=== PATIENT | female | born 1985 | race Caucasian/White ===

== ENCOUNTER → 2017-08-21 14:23 | Outpatient (CLI) | payer OTHER, SELFPAY ==
[2017-08-21 14:54] LABS: Hematocrit 40.5 % (37-47); Mean Corp Hgb Conc 34.6 g/gl (32-36); Mean Corpuscular Hgb 31.7 pg (27.0-32.0); Mean Corpuscular Volume 91.6 fL (81-99); Mean Platelet Vol. 9.4 fl (6.2-12.0); Platelet Count 217 K/mm3 (150-450); RBC Distribution Width CV 12.4 % (11.6-14.6); RBC Distribution Width SD 40.9 fl (35.1-43.9); Red Blood Count 4.42 M/mm3 (4.2-5.4); White Blood Count 7.7 K/mm3 (4.4-11.0)
[2017-08-21 14:56] LABS: Scan Indicated on CBC? Y/N NO
[2017-08-21 15:22] LABS: Thyroid Stim Hormone (TSH) 0.87 uIU/mL (0.358-3.74)
== END ==
PROVIDERS: Visit Provider Obstetrics & Gynecology
DX: R53.82 Chronic fatigue, unspecified (principal)
CPT/HCPCS: 36415; 83036; 84443; 85027

== ENCOUNTER 2018-01-29 08:29 | Day surgery (SDC) | payer OTHER, SELFPAY ==
[2018-01-29 09:05] LABS: Internal QC Validated? YES +Cl - CLEAR BKGD; Pregnancy, Urine Negative Negative
[2018-01-29 09:11] VITALS: BP 116/66; PULSE 56; RESP 16; TEMP 36.9; O2SAT 100; BMI 21.2
--- NOTE | 2018-01-29 09:45 | COLBX_PTH ---
PATIENT: JORGE MERRILL LOC: EN U#:[id number] AGE/SX: 32/F ROOM: RE01/29/[address]: Dr. Lexus Lynn MD : 1985 BED: DIS: 01/29/2018 SPEC #: [id number] RECD: 01/29/18 11:45 STATUS: EMILY MARIA M #: [id number] LENA: 01/29/18 09:[address]: Lexus Lynn DEPT: SURGICAL PATHOLOGY RECD BY: Cyrus Hung ENTERED: 01/29/18 12:12 SP TYPE: COLON BX OTHR DR: Dr. Denis Kelly MD Tissues: Ascending colon Procedures: Surgery Specimen Level IV HEADER OPERATION: Colonoscopy (MAC) PRE-OP DIAGNOSIS: Bright red blood per rectum TISSUE SUBMITTED: Ascending polyp biopsy MICROSCOPIC DIAGNOSIS Ascending colon polyp, biopsy: Fragments of hyperplastic polyp. AM:ysd 01/30/18 MICROSCOPIC DESCRIPTION Slides are reviewed. GROSS DESCRIPTION Received in fixative is one container labeled with the patient's name and designated ascending polyp biopsy. The specimen consists of multiple irregular fragments of light denny soft tissue that in aggregate measure 1.8 x 0.5 x 0.1 cm. The specimen is totally submitted in one cassette. / SJ:syd 01/29/18 TC:5 CPT: 93317
[2018-01-29 10:05] VITALS: BP 116/66; BP 94/42; PULSE 66; RESP 15; TEMP 36.3; O2SAT 100
--- NOTE | 2018-01-29 10:07 | OP.ENDO_ITS ---
Patient Name: Samantha Huertas Procedure Date: 01/29/2018 9:14 AM Date of : 1985 Age: 32 Procedure: Colonoscopy Indications: Anal bleeding, Hemorrhoids Providers: Lexus Lynn MD Medicines: Monitored Anesthesia Care Patient Profile: Last Colonoscopy: none. The patient's first colonoscopy is today. Complications: No immediate complications. Procedure: Pre-Anesthesia Assessment: - Prior to the procedure, a History and Physical was performed, and patient medications and allergies were reviewed. The patient's tolerance of previous anesthesia was also reviewed. The risks and benefits of the procedure and the sedation options and risks were discussed with the patient. All questions were answered, and informed consent was obtained. Prior Anticoagulants: The patient has taken no previous anticoagulant or antiplatelet agents. ASA Grade Assessment: I - A normal, healthy patient. After reviewing the risks and benefits, the patient was deemed in satisfactory condition to undergo the procedure. After I obtained informed consent, the scope was passed under direct vision. Throughout the procedure, the patient's blood pressure, pulse, and oxygen saturations were monitored continuously. The pediatric colonoscope was introduced through the anus and advanced to the cecum, identified by the appendiceal orifice, ileocecal valve and palpation. The colonoscopy was performed without difficulty. The patient tolerated the procedure well. The quality of the bowel preparation was good. Scope In: 9:33:42 AM Scope Withdrawal Time 0 hours 14 minutes 46 seconds Scope Out: 10:01:32 AM Total Procedure Duration Time 0 hours 27 minutes 50 seconds Findings: Internal hemorrhoids were found during retroflexion and during digital exam. The hemorrhoids were Grade I (internal hemorrhoids that do not prolapse). A 4 to 7 mm polyp was found in the ascending colon. The polyp was semi-sessile. The polyp was removed with a cold biopsy forceps. Resection and retrieval were complete. The exam was otherwise without abnormality. Impression: - Internal hemorrhoids. - One 4 to 7 mm polyp in the ascending colon, removed with a cold biopsy forceps. Resected and retrieved. - The examination was otherwise normal. Recommendation: - Discharge patient to home. - High fiber diet. - Continue present medications. - Repeat colonoscopy in 3 - 5 years for surveillance based on pathology results. Procedure Code(s): --- Professional --- 05976, Colonoscopy, flexible; with biopsy, single or multiple Diagnosis Code(s): --- Professional --- K64.0, First degree hemorrhoids D12.2, Benign neoplasm of ascending colon K62.5, Hemorrhage of anus and rectum CPT copyright 2017 [employer]. All rights reserved. The codes documented in this report are preliminary and upon stage driver review may be revised to meet current compliance requirements. MD Lexus Irby MD 01/29/2018 10:07:14 AM This report has been signed electronically. Number of Addenda: 0 Note Initiated On: 01/29/2018 9:14 AM
[2018-01-29 10:10] VITALS: BP 116/66; BP 96/63; PULSE 75; RESP 16; O2SAT 100
[2018-01-29 10:15] VITALS: BP 116/66; BP 92/60; PULSE 63; RESP 16; O2SAT 100
[2018-01-29 10:20] VITALS: BP 101/59; BP 116/66; PULSE 59; RESP 16; TEMP 36.6; O2SAT 98
== END 2018-01-29 10:47 | disposition home or self-care (01) ==
LOC: EN 08:30 → AC 08:32
PROVIDERS: Anesthesiology; Family Provider Family Medicine; PCP Family Medicine; Referring Provider Surgery; Visit Provider Surgery
PROC: 0DJD8ZZ Inspection of Lower Intestinal Tract, Via Natural or Artificial Opening Endoscopic (ICD-10-PCS; CPT 45378; principal; 2018-01-29 09:40)
DX: K63.5 Polyp of colon (principal); K64.0 First degree hemorrhoids; Z87.891 Personal history of nicotine dependence
CPT/HCPCS: 45380; 81025; 88305; J7120

== ENCOUNTER → 2020-06-29 | Outpatient (CLI) | payer OTHER, SELFPAY ==
[2020-07-01 20:41] LABS: HPV Reflexed? NOT INDICATED
== END | disposition home or self-care (01) ==
LOC: LABSPEC 11:06
PROVIDERS: PCP Family Medicine; Visit Provider Obstetrics & Gynecology
DX: Z12.4 Encounter for screening for malignant neoplasm of cervix (principal)
CPT/HCPCS: 88175; G0145

== ENCOUNTER 2021-07-07 15:23 | Outpatient (CLI) | payer OTHER, SELFPAY ==
[2021-07-07 17:49] LABS: Absolute Lymphocyte Count 2.55 X10^3/uL (0.83-4.51); Absolute Neutrophil Count 3.3 X10^3/uL (2.0-7.7); Basophil# 0.05 X10^3/uL; Basophil% 0.8 % (0-1); Eosinophil# 0.07 X10^3/uL; Eosinophils% 1.1 % (0-5); Hematocrit 37.8 % (37-47); Hemoglobin 12.7 g/dL (12.0-15.0); Lymphocyte # 2.55 X10^3/ul (0.83-4.51); Lymphocyte % 38.9 % (19-41); Mean Corp Hgb Conc 33.6 g/dL (32-36); Mean Corpuscular Hgb 31.7 pg (27.0-32.0); Mean Corpuscular Volume 94.3 fL (81-99); Mean Platelet Vol. 10.2 fl (6.2-12.0); Monocyte# 0.54 X10^3/uL; Monocyte% 8.2 % (0-10); NRBC Flagged by Analyzer 0 % (0-5); Neutrophil # 3.33 X10^3/uL (2.7-7.7); Neutrophil % 50.7 % (47-70); Platelet Count 261 K/mm3 (150-450); RBC Distribution Width CV 12.9 % (11.6-14.6); RBC Distribution Width SD 44.6 fl (35.1-43.9); Red Blood Count 4.01 M/mm3 (4.2-5.4); White Blood Count 6.6 K/mm3 (4.4-11.0)
[2021-07-07 18:04] LABS: AST(SGOT) 22 U/L (15-37); Alanine Aminotransfer ALT/SGPT 25 U/L (13-56); Albumin, Serum 3.6 g/dL (3.2-5.0); Alkaline Phosphatase 63 U/L (45-117); Anion Gap 6 (5-15); BUN 18 mg/dL (7-18); BUN/Creat Ratio 30.9 RATIO (10-20); Calcium,Total 8.7 mg/dL (8.5-10.1); Chloride 103 mmol/L (98-107); Creatinine, Serum 0.58 mg/dL (0.55-1.02); EST Glomerular Filtration Rate 124 mL/min (>60); Est Glom Filt Rate - Afr Amer 150 mL/min (>60); Globulin 3.7 g/dL (2.2-4.2); Glucose 75 mg/dL (74-106); Potassium 3.8 mmol/L (3.5-5.1); Protein, Total 7.3 g/dL (6.4-8.2); Sodium Level 137 mmol/L (136-145)
== END 2021-07-07 23:59 | disposition home or self-care (01) ==
LOC: MFPLAB 15:26
PROVIDERS: PCP Registered Nurse; Referring Provider Registered Nurse; Visit Provider Registered Nurse
DX: K62.5 Hemorrhage of anus and rectum (principal)
CPT/HCPCS: 36415; 80053; 85025

== ENCOUNTER 2021-07-12 12:06 | Outpatient (CLI) | payer OTHER, SELFPAY ==
[2021-07-18 20:04] LABS: HPV Reflexed? NOT INDICATED
== END 2021-07-12 23:59 | disposition home or self-care (01) ==
LOC: LABSPEC 12:09
PROVIDERS: PCP Registered Nurse; Visit Provider Obstetrics & Gynecology
DX: Z12.4 Encounter for screening for malignant neoplasm of cervix (principal)
CPT/HCPCS: 88175; G0145

== ENCOUNTER → 2022-12-03 | Outpatient (CLI) | payer OTHER, SELFPAY ==
[2022-12-03 10:23] LABS: Hematocrit 38.2 % (37-47); Hemoglobin 12.4 g/dL (12.0-15.0); Mean Corp Hgb Conc 32.5 g/dL (32-36); Mean Corpuscular Hgb 30.8 pg (27.0-32.0); Mean Corpuscular Volume 94.8 fL (81-99); Mean Platelet Vol. 10.2 fl (6.2-12.0); Platelet Count 229 K/mm3 (150-450); RBC Distribution Width CV 12.8 % (11.6-14.6); RBC Distribution Width SD 44.4 fl (35.1-43.9); Red Blood Count 4.03 M/mm3 (4.2-5.4); White Blood Count 4.9 K/mm3 (4.4-11.0)
[2022-12-03 14:34] LABS: AST(SGOT) 15 U/L (15-37); Alanine Aminotransfer ALT/SGPT 17 U/L (13-56); Albumin, Serum 3.6 g/dL (3.2-5.0); Alkaline Phosphatase 73 U/L (45-117); Anion Gap 8 (5-15); BUN 14 mg/dL (7-18); BUN/Creat Ratio 24.6 RATIO (10-20); Calcium,Total 8.6 mg/dL (8.5-10.1); Chloride 107 mmol/L (98-107); Creatinine, Serum 0.57 mg/dL (0.55-1.02); EST Glomerular Filtration Rate 127 mL/min (>60); Est Glom Filt Rate - Afr Amer 154 mL/min (>60); Free T3 2.6 pg/mL (2.18-3.98); Globulin 3.6 g/dL (2.2-4.2); Glucose 91 mg/dL (74-106); Potassium 4.1 mmol/L (3.5-5.1); Protein, Total 7.2 g/dL (6.4-8.2); Sodium Level 138 mmol/L (136-145); T3 Uptake 37 % (30-39); T4 Free Direct 1.09 ng/dL (0.76-1.46); T4 Total, Thyroxin 8.9 ug/dL (4.8-13.9); T7 / Free Thyroxin Index 3.3 (1.4-4.5); Thyroid Stim Hormone (TSH) 1.14 uIU/mL (0.358-3.74)
[2022-12-05 16:09] LABS: Thyroid Stim Immunoglob <0.10 IU/L (0.00-0.55)
== END | disposition home or self-care (01) ==
LOC: MFPLAB 08:02
PROVIDERS: PCP Registered Nurse
DX: M79.662 Pain in left lower leg (principal); M79.661 Pain in right lower leg
CPT/HCPCS: 36415; 80053; 84436; 84439; 84443; 84445; 84479; 84481; 85027

== ENCOUNTER 2024-01-13 09:17 | Day surgery (SDC) | payer OTHER, SELFPAY ==
[2024-01-13] VITALS (7 sets, daily range): BP systolic 110–126; BP diastolic 74–86; PULSE 53–67; RESP 16; TEMP 36.1–36.6; O2SAT 97–100; BMI 23.1
--- NOTE | 2024-01-13 10:04 | H&P.OPEN ---
HPI - General General Date of Service: 01/13/24 HPI Narrative JORGE MERRILL, is a 38 F who presents for a surveillance colonoscopy due to history of colon polyp. Last colonoscopy was 01/2018 with tubular adenoma. Patient still having some occasional bright red blood per rectum when he needed to her hemorrhoids. As she has had this since prior to the last scope. Otherwise patient denies any other changes. 12/06/23 office visit HPI HPI: 38-year-old female presents for surveillance colonoscopy due to history of colon polyp. Patient last colonoscopy was 01/2018 had tubular adenoma at that time. Patient was still dealing with that. Blood per rectum did also have hemorrhoids on exam. Patient was considering getting stapled hemorrhoidectomy with Dr. Ruvalcaba; however was scheduled once but canceled by the patient as she was unsure. Patient states she still runs often still has bright red blood per rectum about 3 days of the week states it can be worse with her period. Patient does have bowel movements daily, bleeding is bright red can drip into the toilet or just when she wipes. Patient denies any family history of colon cancer. Patient denies any abdominal pain/nausea/vomiting/reflux. [facility] Medical History Anxiety Non-smoker Contact with and (suspected) exposure to other viral communicable diseases URI (upper respiratory infection) Blood in stool Hemorrhoids Fatigue Home Medications ?Medication ?Instructions ?Recorded ?Last Taken ?Type magnesium carb,citrate,oxide 600 mg PO DAILY 06/01/22 Unknown History (Magnesium Complex) ascorbic acid 30 mg-collagen, 1 tab PO DAILY 12/06/23 Unknown History hydrolyzed 833.3 mg tablet (Collagen Skin Renewal) escitalopram oxalate 10 mg tablet 10 mg PO DAILY 01/08/24 Unknown History Allergy/AdvReac Type Severity Reaction Status Date / Time No Known Allergies Allergy Verified 01/13/24 09:36 Family History Grandmother Diabetes Surgical History Hx of lumpectomy History of colonoscopy Hx of LEEP (loop electrosurgical excision procedure) of cervix complicating Social History Smoking Status: Never smoker second hand exposure: No alcohol intake: current alcohol intake frequency: a few times a month substance use type: does not use caffeine: Yes what type of physical activity do you participate in: running frequency: 5-6 times per week seatbelt use: always Past Medical/Surgical History Planned Operation Planned Operative Procedure(s): COLONOSCOPY S.O.S: No Previous Hospitalizations/Surgeries HX Hospitalizations: No 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 colonoscopy 2018 Any Problems With Anesthesia: No You/Your Family Experience Fever (Hyperthermia) With Anes: No Cholinesterase deficiency: No Cardiovascular Hx Chest Pain within Last 2 months: No Hx of Irregular Heartbeat and/or Afib: No Hx Heart Attack: No Hx Congestive Heart Failure: No Hx Rheumatic Fever: No Hx Hypertension: No Hx Internal Defibrillator: No Hx Pacemaker: No Hx Cardiac Catheterization: No Hx Cardiac Surgery/Stents/Etc.: No Hx Stress Test: No Hx Pain in Legs when Walking/Leg Cramps: No Respiratory Chronic Cough: No HX of Shortness of Breath: No Hoarseness: No Hx Chronic Obstructive Pulmonary Disease (COPD): No Hx Asthma: No Hx Emphysema: No Hx Sleep Apnea: No Hx Respiratory Tract Infection/Cold (presently): No Do You Snore Loudly (louder than talking or can be heard): No Do You Often Feel Tired/ Fatigued/ Sleepy Dring Daytime?: No Has Anyone Observed You Stop Breathing During Sleep?: No Result (for STOP score): Negative Hx Smoking: Yes (as a teenager) Smoking Status: Never smoker Gastrointestinal Hx Gastrointestinal Disorders: No Hx Gastrointestinal Bleed: Yes (rectal bleeding) Hx Ulcer: No Hx Hiatal Hernia: No Difficulty Chewing/Swallowing: No Special diet followed at home: No Hx Unplanned Weight Loss of 20#: No HX Unplanned Weight Gain of 20#: No Neurological Hx Seizures: No HX Syncope/Blackout Spells/Unconsciousness: No Hx Transient Ischemic Attacks (TIA): No Hx Multiple Sclerosis: No Hx Parkinson's Disease: No Hx Head/Neck Injury: Yes Hx Headaches: Yes Hx Back Injury/Pain: No Recent Onset of Speech Difficulty: No Restless Legs: No Does patient have nerve stimulator: No Blood Disorder Hx Leukemia: No Bleeding Tendencies: No Hx Deep Vein Thrombosis: No Hx High Cholesterol: No Blood Transmitted Disease: No Hx Hepatitis: No Hx Cirrhosis: No Hx Anemia: No Hx Blood Disorders: No Genitourinary Hx Renal Disease: No Musculoskeletal Hx Arthritis: No Hx Rheumatoid Arthritis: No Hx Gout: No Endocrine Hx Diabetes: No Thyroid Disease: No Hx Steroid Therapy: No Psycho/Social Hx Substance Use: No Hx Alcohol Use: No Hx Anxiety: Yes Hx Depression: Yes Mental Illness: No Hx Dementia: No Miscellaneous Hx Cancer: No Recent Exposure to Contagious Disease: No Hx of C-Diff: No Any Loose Teeth: No Allergies No Known Allergies Allergy (Verified 01/13/24 09:36) Discharge Is Pt Admitted From a Shelter, or a Chcf: No After D/C, Where Do you Plan to Go: Return Home Vital Signs Vital Signs Vital Signs: 01/13/24 09:38 01/13/24 09:38 Temperature 97.4 F L Temperature Source Temporal Pulse Rate 53 L Respiratory Rate 16 Respiratory Pattern Normal Blood Pressure 122/76 H Blood Pressure Mean 91 Blood Pressure Source Monitor Blood Pressure Position Semi-Fowlers Blood Pressure Location Right Arm Pulse Ox 100 Oxygen Delivery Method Room Air Weight Weight: 134 lb 7.712 oz Body Mass Index (BMI) 23.1 Physical Exam Const alert, oriented x3 and no apparent distress HEENT normocephalic and head/scalp atraumatic Resp normal respiratory effort Cardio regular rate GI soft to palpation and non-tender; Negative for non-distended Palpation: Negative for guarding Extremity no clubbing, cyanosis or edema Skin no rashes or lesions noted Neuro CN's II-XII intact bilaterally Psych mental status grossly normal Assessment & Plan Assessment/Plan (1) Hx of colonic polyps: Surgery Risks - Colonoscopy I discussed with the patient the risks of the procedure: Yes Risks Include but are not Limited To: Risks include but are not limited to: Bleeding, perforation requiring further surgery, inability to complete colonoscopy requiring barium enema.
--- NOTE | 2024-01-13 10:10 | PRE.ANES_ITS ---
ASA Classification* ASA Classification ASA Classification: 2 Assessment & Plan Anesthesia* Anesthesia Assessment Anesthesia Assessment: Discussed sedation and/or anesthesia options, risks, benefits, and alternatives with patient/parents/legal guardian/POA. Questions invited. The patient/parents/legal guardian/POA seems to understand and agrees to proceed with anesthesia plan. Reviewed the physical assessment, medical history, allergy history and patient home medications list prior to surgery/procedure/anesthetic and documented any changes. Performed airway and anesthesia risk assessments. Anesthesia Type Anesthesia Type: MAC Anesthesia Focused Assessment* Temperature: 97.4 F Pulse Rate: 53 Blood Pressure: 122/76 Respiratory Rate: 16 Pulse Ox: 100 Airway Assessment Mouth opens: >3 cm Mallampati Score: II Focused Labs Anesthesia Preop lab: CBC WBC 4.9 K/mm3 (4.4-11.0) 12/03/22 08:07 RBC 4.03 M/mm3 (4.2-5.4) L 12/03/22 08:07 Hgb 12.4 g/dL (12.0-15.0) 12/03/22 08:07 Hct 38.2 % (37-47) 12/03/22 08:07 Plt Count 229 K/mm3 (150-450) 12/03/22 08:07 CHEMISTRY Potassium 4.1 mmol/L (3.5-5.1) 12/03/22 08:07 Sodium 138 mmol/L (136-145) 12/03/22 08:07 BUN 14 mg/dL (7-18) 12/03/22 08:07 Creatinine 0.57 mg/dL (0.55-1.02) 12/03/22 08:07 Glucose 91 mg/dL (74-106) 12/03/22 08:07 TSH 1.14 uIU/mL (0.358-3.74) 12/03/22 08:07 COAG Urine Test Negative Negative 01/29/18 08:43 Pre-Assessment Diagnosis/Proposed Procedure Planned Operative Procedure(s): COLONOSCOPY Anesthesia History 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 When Was Last Pacemaker Check QUESTION #4 FULL TEXT: You/Your Family Experience fever (hyperthermia) with Anesthesia Last Oral Intake Last Oral intake: Last Oral Intake NPO since 00:00 01/13/24 09:38 Meds taken in AM with sips of No 01/13/24 09:38 water? 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 Female Yes 01/08/24 14:21 HX of Motion Sickness No 01/08/24 14:21 HX of N/V After Surgery No 01/08/24 14:21 Non-Smoker Yes 01/08/24 14:21 Duration of Surgery greater No 01/08/24 14:21 than 60 minutes Number of Risk Factors 2 01/08/24 14:21 PONV Score Moderate Risk 01/08/24 14:21 Height & Weight Height & Weight: Anesthesia: Height & Weight Height 5 ft 4 in 01/13/24 09:38 Weight: 61 kg 01/13/24 09:38 Body Mass Index (BMI) 23.1 01/13/24 09:38 Respiratory Assessment Respiratory Assessment - school year nanny: Respiratory Tract Infection Hx - school year nanny Hx Respiratory Tract Infection No 01/13/24 10:05 STOP Sleep Apnea STOP Sleep Apnea - school year nanny: STOP Sleep Apnea - school year nanny Hx Hypertension No 01/13/24 10:05 Hx Sleep Apnea No 01/13/24 10:05 CPAP BIPAP Do you snore loudly (louder No 01/13/24 10:05 than talking or can be heard Do you often feel tired/ No 01/13/24 10:05 fatigued/ sleepy during daytime? Has anyone observed you stop No 01/13/24 10:05 breathing during sleep? STOP Results Negative 01/13/24 10:05 QUESTION #5 FULL TEXT : Do you snore loudly (louder than talking or can be heard through closed doors)? 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 Specify any problems Hx of Preganancy in last 3 No 01/08/24 14:21 Months Nurse Filling Out Transfusion VCHRISTIN 01/08/24 14:21 & Questions: Date: 01/08/24 01/08/24 14:21 Time: 14:22 01/08/24 14:21 Patient unable to answer at this time (ie. confused, unrespo /Reproduction History /Reproductive History - school year nanny: /Reproductive Hx- school year nanny Hx Now Gestational Age (in weeks): EDC: Hx Hx Para Hx Section SAB PFSH Medical History Anxiety Non-smoker Contact with and (suspected) exposure to other viral communicable diseases URI (upper respiratory infection) Blood in stool Hemorrhoids Fatigue Home Medications ?Medication ?Instructions ?Recorded ?Last Taken ?Type magnesium carb,citrate,oxide 600 mg PO DAILY 06/01/22 Unknown History (Magnesium Complex) ascorbic acid 30 mg-collagen, 1 tab PO DAILY 12/06/23 Unknown History hydrolyzed 833.3 mg tablet (Collagen Skin Renewal) escitalopram oxalate 10 mg tablet 10 mg PO DAILY 01/08/24 Unknown History Allergy/AdvReac Type Severity Reaction Status Date / Time No Known Allergies Allergy Verified 01/13/24 09:36 Family History Grandmother Diabetes Surgical History Hx of lumpectomy History of colonoscopy Hx of LEEP (loop electrosurgical excision procedure) of cervix complicating Social History Smoking Status: Never smoker second hand exposure: No alcohol intake: current alcohol intake frequency: a few times a month substance use type: does not use caffeine: Yes what type of physical activity do you participate in: running frequency: 5-6 times per week seatbelt use: always Review of Systems (Anesthesia) ROS Narrative System reviewed and no additional complaints, except as documented.
--- NOTE | 2024-01-13 11:23 | NURSING ---
pt refused test for procedure- she is aware of risks
--- NOTE | 2024-01-13 11:47 | POSTOPAN2_ITS ---
Anesthesia Postop Eval I Sum Postop Eval Completion status Anesthesia document: Postop Eval 1 completed: Yes Anesthesia Postop Eval I Summary Anesthesia Postop Eval I Summary: Anesthesia Postop Eval I: Assessment Summary Airway patent Yes 01/13/24 11:47 [email or web address] Spontaneous unlabored Yes 01/13/24 11:47 [email or web address] respirations Mental status Awake,Calm 01/13/24 11:47 [email or web address] nausea No 01/13/24 11:47 [email or web address] [email or web address] Vomiting No 01/13/24 11:47 [email or web address] Anesthesia Postop Eval I: Fluid Summary Crystalloid volume administer 20 01/13/24 11:47 [email or web address] (ml) Colloids volume administered ( ml) Blood Product volume administered (ml) Total IV fluid infused 20 01/13/24 11:47 [email or web address] Anesthesia Postop Eval I: Summary Notes Anesthesia Complication No 01/13/24 11:47 [email or web address] Anesthesia Complication Comment: Post-operative progress note Anesthesia: Postop Eval II Evaluation Mental status: Awake and Calm Pain Level: 0 nausea: No Vomiting: No Complications Anesthesia Complication: No
--- NOTE | 2024-01-13 11:47 | PCM.POST.ANE ---
Anesthesia: Postop Eval I Current Vital Signs Temperature: 97 F Pulse Rate: 60 Blood Pressure: 126/86 Respiratory Rate: 16 Pulse Ox: 98 Oxygen Delivery Method: Room Air Assessment Airway patent: Yes Spontaneous unlabored respirations: Yes Mental status: Awake and Calm nausea: No Vomiting: No Anesthesia Complication: No Fluid Hydration Crystalloid volume administer (ml): 20 Total IV fluid infused: 20 Progress Note Anesthesia document: Postop Eval 1 completed: Yes
--- NOTE | 2024-01-13 11:47 | PCM.POSTANE2 ---
Anesthesia Postop Eval I Sum Postop Eval Completion status Anesthesia document: Postop Eval 1 completed: Yes Anesthesia Postop Eval I Summary Anesthesia Postop Eval I Summary: Anesthesia Postop Eval I: Assessment Summary Airway patent Yes 01/13/24 11:47 [email or web address] Spontaneous unlabored Yes 01/13/24 11:47 [email or web address] respirations Mental status Awake,Calm 01/13/24 11:47 [email or web address] nausea No 01/13/24 11:47 [email or web address] Vomiting No 01/13/24 11:47 [email or web address] Anesthesia Postop Eval I: Fluid Summary Crystalloid volume administer 20 01/13/24 11:47 [email or web address] (ml) Colloids volume administered ( ml) Blood Product volume administered (ml) Total IV fluid infused 20 01/13/24 11:47 [email or web address] Anesthesia Postop Eval I: Summary Notes Anesthesia Complication No 01/13/24 11:47 [email or web address] Anesthesia Complication Comment: Post-operative progress note Anesthesia: Postop Eval II Evaluation Mental status: Awake and Calm Pain Level: 0 nausea: No Vomiting: No Complications Anesthesia Complication: No
--- NOTE | 2024-01-13 15:27 | OP.COLON_ITS ---
Patient Name: Samantha Huertas Procedure Date: 01/13/2024 11:22 AM Date of : 1985 Age: 38 Procedure: Colonoscopy Indications: High risk colon cancer surveillance: Personal history of colonic polyps Providers: Lexus Lynn MD Medicines: Monitored Anesthesia Care Patient Profile: This is a 38 year old female. Last Colonoscopy: January 2018. Complications: No immediate complications. Procedure: Pre-Anesthesia Assessment: - Prior to the procedure, a History and Physical was performed, and patient medications and allergies were reviewed. The patient's tolerance of previous anesthesia was also reviewed. The risks and benefits of the procedure and the sedation options and risks were discussed with the patient. All questions were answered, and informed consent was obtained. Prior Anticoagulants: The patient has taken no anticoagulant or antiplatelet agents. After reviewing the risks and benefits, the patient was deemed in satisfactory condition to undergo the procedure. After I obtained informed consent, the scope was passed under direct vision. Throughout the procedure, the patient's blood pressure, pulse, and oxygen saturations were monitored continuously. The was introduced through the anus and advanced to the cecum, identified by the appendiceal orifice, ileocecal valve and palpation. The colonoscopy was performed without difficulty. The patient tolerated the procedure well. The quality of the bowel preparation was good. The colonoscopy was performed without difficulty. The patient tolerated the procedure well. The quality of the bowel preparation was good. Scope In: 11:31:52 AM Scope Withdrawal Time 0 hours 7 minutes 53 seconds Scope Out: 11:46:08 AM Total Procedure Duration Time 0 hours 14 minutes 16 seconds Findings: Hemorrhoids were found on perianal exam. Non-bleeding internal hemorrhoids were found. The hemorrhoids were Grade I (internal hemorrhoids that do not prolapse). The entire examined colon appeared normal. Impression: - Hemorrhoids found on perianal exam. - Non-bleeding internal hemorrhoids. - The entire examined colon is normal. - No specimens collected. Recommendation: - Discharge patient to home. - Resume previous diet. - Continue present medications. - Repeat colonoscopy in 10 years for screening purposes. Procedure Code(s): --- Professional --- G0105, PT, Colorectal cancer screening; colonoscopy on individual at high risk Diagnosis Code(s): --- Professional --- Z86.010, Personal history of colonic polyps K64.0, First degree hemorrhoids CPT copyright 2021 [employer]. All rights reserved. The codes documented in this report are preliminary and upon lead software tester review may be revised to meet current compliance requirements. MD Lexus Irby MD 01/13/2024 11:52:21 AM This report has been signed electronically. Number of Addenda: 0 Note Initiated On: 01/13/2024 11:22 AM
--- NOTE | 2024-01-13 15:27 | OP.CCLET_ITS ---
01/13/2024 Yany Roman Md Re : Colonoscopy procedure for Samantha Naidu Jessie This procedure was performed on Saturday, January 13, 2024. My impressions and recommendations are as follows: Impressions : - Hemorrhoids found on perianal exam. - Non-bleeding internal hemorrhoids. - The entire examined colon is normal. - No specimens collected. Recommendations : - Discharge patient to home. - Resume previous diet. - Continue present medications. - Repeat colonoscopy in 10 years for screening purposes. My findings are described in the full procedure note, which is enclosed. If I can be of further assistance, please feel free to contact me at Doctor phone number(s): , Work: . Sincerely, MD Lexus Irby MD 01/13/2024 11:52:21 AM This report has been signed electronically.
[2024-01-13 17:56] LABS: Internal QC Validated? YES +Cl - CLEAR BKGD; Pregnancy, Urine Negative Negative
== END 2024-01-13 12:34 | disposition home or self-care (01) ==
LOC: EN 09:19 → AC 09:20
PROVIDERS: Anesthesiology; PCP Family Medicine; Referring Provider Family Medicine; Visit Provider Surgery
PROC: 0DJD8ZZ Inspection of Lower Intestinal Tract, Via Natural or Artificial Opening Endoscopic (ICD-10-PCS; CPT 45378; principal; 2024-01-13 10:55)
DX: Z12.11 Encounter for screening for malignant neoplasm of colon (principal); K64.0 First degree hemorrhoids; Z86.0100 Personal history of colon polyps, unspecified; F41.9 Anxiety disorder, unspecified; Z79.899 Other long term (current) drug therapy; K64.4 Residual hemorrhoidal skin tags
CPT/HCPCS: 45378; 81025; A4216

== ENCOUNTER 2024-02-07 07:20 | Day surgery (SDC) | payer OTHER, SELFPAY ==
[2024-02-07] VITALS (8 sets, daily range): BP systolic 95–120; BP diastolic 50–78; PULSE 56–79; RESP 16; TEMP 36.1–36.6; O2SAT 94–100; BMI 23.1
[2024-02-07 07:48] LABS: Internal QC Validated? YES +Cl - CLEAR BKGD; Pregnancy, Urine Negative Negative
--- NOTE | 2024-02-07 07:50 | PRE.ANES_ITS ---
ASA Classification* ASA Classification ASA Classification: 2 Assessment & Plan Anesthesia* Anesthesia Assessment Anesthesia Assessment: Discussed sedation and/or anesthesia options, risks, benefits, and alternatives with patient/parents/legal guardian/POA. Questions invited. The patient/parents/legal guardian/POA seems to understand and agrees to proceed with anesthesia plan. Reviewed the physical assessment, medical history, allergy history and patient home medications list prior to surgery/procedure/anesthetic and documented any changes. Performed airway and anesthesia risk assessments. Anesthesia Type Anesthesia Type: General Anesthesia Focused Assessment* Airway Assessment Mouth opens: >3 cm Mallampati Score: II Focused Labs Anesthesia Preop lab: CBC WBC 4.9 K/mm3 (4.4-11.0) 12/03/22 08:07 RBC 4.03 M/mm3 (4.2-5.4) L 12/03/22 08:07 Hgb 12.4 g/dL (12.0-15.0) 12/03/22 08:07 Hct 38.2 % (37-47) 12/03/22 08:07 Plt Count 229 K/mm3 (150-450) 12/03/22 08:07 CHEMISTRY Potassium 4.1 mmol/L (3.5-5.1) 12/03/22 08:07 Sodium 138 mmol/L (136-145) 12/03/22 08:07 BUN 14 mg/dL (7-18) 12/03/22 08:07 Creatinine 0.57 mg/dL (0.55-1.02) 12/03/22 08:07 Glucose 91 mg/dL (74-106) 12/03/22 08:07 TSH 1.14 uIU/mL (0.358-3.74) 12/03/22 08:07 COAG Urine Test Negative Negative 02/07/24 07:30 Pre-Assessment Diagnosis/Proposed Procedure Planned Operative Procedure(s): HEMORRHOIDECTOMY Anesthesia History Anesthesia History - area representative: Anesthesia History - area representative Hx Hospitalization No 02/03/24 09:20 Any Problems With Anesthesia No 02/03/24 09:20 Cholinesterase deficiency No 02/03/24 09:20 You/Your Family Experience No 02/03/24 09:20 fever (hyperthermia) with Relationship Recent Exposure to Contagious No 01/13/24 10:05 Disease Does patient have nerve No 02/03/24 09:20 stimulator Patient instructed to have device shut off --Does patient have Pacemaker or ICD? When Was Last Pacemaker Check QUESTION #4 FULL TEXT: You/Your Family Experience fever (hyperthermia) with Anesthesia Last Oral Intake Last Oral intake: Last Oral Intake NPO since Meds taken in AM with sips of water? Meds patient instructed to take am of surgery PONV PONV - area representative: PONV - area representative Female Yes 02/03/24 09:20 HX of Motion Sickness No 02/03/24 09:20 HX of N/V After Surgery No 02/03/24 09:20 Non-Smoker Yes 02/03/24 09:20 Duration of Surgery greater No 02/03/24 09:20 than 60 minutes Number of Risk Factors 2 02/03/24 09:20 PONV Score Moderate Risk 02/03/24 09:20 Height & Weight Height & Weight: Anesthesia: Height & Weight Height 5 ft 4 in 01/13/24 09:38 Respiratory Assessment Respiratory Assessment - area representative: Respiratory Tract Infection Hx - area representative Hx Respiratory Tract Infection No 02/03/24 09:20 STOP Sleep Apnea STOP Sleep Apnea - area representative: STOP Sleep Apnea - area representative Hx Hypertension No 02/03/24 09:20 Hx Sleep Apnea No 02/03/24 09:20 CPAP BIPAP Do you snore loudly (louder No 02/03/24 09:20 than talking or can be heard Do you often feel tired/ No 02/03/24 09:20 fatigued/ sleepy during daytime? Has anyone observed you stop No 02/03/24 09:20 breathing during sleep? STOP Results Negative 02/03/24 09:20 QUESTION #5 FULL TEXT : Do you snore loudly (louder than talking or can be heard through closed doors)? 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 Specify any problems Hx of Preganancy in last 3 No 02/03/24 09:20 Months Nurse Filling Out Transfusion DSCHRIBER 02/03/24 09:20 & Questions: Date: 02/03/24 02/03/24 09:20 Time: 09:21 02/03/24 09:20 Patient unable to answer at this time (ie. confused, unrespo /Reproduction History /Reproductive History - area representative: /Reproductive Hx- area representative Hx Now Gestational Age (in weeks): EDC: Hx Hx Para Hx Section SAB PFSH Medical History Anxiety Non-smoker Contact with and (suspected) exposure to other viral communicable diseases URI (upper respiratory infection) Blood in stool Hemorrhoids Fatigue Home Medications ?Medication ?Instructions ?Recorded ?Last Taken ?Type magnesium carb,citrate,oxide 600 mg PO DAILY 06/01/22 Unknown History (Magnesium Complex) ascorbic acid 30 mg-collagen, 1 tab PO DAILY 12/06/23 Unknown History hydrolyzed 833.3 mg tablet (Collagen Skin Renewal) escitalopram oxalate 10 mg tablet 10 mg PO DAILY 01/08/24 Unknown History Allergy/AdvReac Type Severity Reaction Status Date / Time No Known Allergies Allergy Verified 02/07/24 07:36 Family History Grandmother Diabetes Surgical History Hx of lumpectomy History of colonoscopy Hx of LEEP (loop electrosurgical excision procedure) of cervix complicating Social History Smoking Status: Never smoker second hand exposure: No alcohol intake: current alcohol intake frequency: a few times a month substance use type: does not use caffeine: Yes what type of physical activity do you participate in: running frequency: 5-6 times per week seatbelt use: always Review of Systems (Anesthesia) ROS Narrative System reviewed and no additional complaints, except as documented.
--- NOTE | 2024-02-07 08:36 | HP.PCM_ITS ---
History and Physical Date of Admission: 02/07/24 01/13/24 1004 MR#: [id number] Acct: [id number] Name: JORGE MERRILL Rep #: [id number] : 1985 38 From: Lexus Lynn MD PCP: Dr. Yany Roman MD Status: [facility] Location: [place] [address] HPI - General General Date of Service: 01/13/24 HPI Narrative JORGE MERRILL, is a 38 F who presents for a surveillance colonoscopy due to history of colon polyp. Last colonoscopy was 01/2018 with tubular adenoma. Patient still having some occasional bright red blood per rectum when he needed to her hemorrhoids. As she has had this since prior to the last scope. Otherwise patient denies any other changes. 12/06/23 office visit HPI HPI: 38-year-old female presents for surveillance colonoscopy due to history of colon polyp. Patient last colonoscopy was 01/2018 had tubular adenoma at that time. Patient was still dealing with that. Blood per rectum did also have hemorrhoids on exam. Patient was considering getting stapled hemorrhoidectomy with Dr. Ruvalcaba; however was scheduled once but canceled by the patient as she was unsure. Patient states she still runs often still has bright red blood per rectum about 3 days of the week states it can be worse with her period. Patient does have bowel movements daily, bleeding is bright red can drip into the toilet or just when she wipes. Patient denies any family history of colon cancer. Patient denies any abdominal pain/nausea/vomiting/reflux. [facility] Medical History Anxiety Non-smoker Contact with and (suspected) exposure to other viral communicable diseases URI (upper respiratory infection) Blood in stool Hemorrhoids Fatigue Home Medications ?Medication ?Instructions ?Recorded ?Last Taken ?Type magnesium carb,citrate,oxide 600 mg PO DAILY 06/01/22 Unknown History (Magnesium Complex) ascorbic acid 30 mg-collagen, 1 tab PO DAILY 12/06/23 Unknown History hydrolyzed 833.3 mg tablet (Collagen Skin Renewal) escitalopram oxalate 10 mg tablet 10 mg PO DAILY 01/08/24 Unknown History Allergy/AdvReac Type Severity Reaction Status Date / Time No Known Allergies Allergy Verified 01/13/24 09:36 Family History Grandmother Diabetes Surgical History Hx of lumpectomy History of colonoscopy Hx of LEEP (loop electrosurgical excision procedure) of cervix complicating Social History Smoking Status: Never smoker second hand exposure: No alcohol intake: current alcohol intake frequency: a few times a month substance use type: does not use caffeine: Yes what type of physical activity do you participate in: running frequency: 5-6 times per week seatbelt use: always Past Medical/Surgical History Planned Operation Planned Operative Procedure(s): COLONOSCOPY S.O.S: No Previous Hospitalizations/Surgeries HX Hospitalizations: No 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 Any Problems With Anesthesia: No You/Your Family Experience Fever (Hyperthermia) With Anes: No Cholinesterase deficiency: No Cardiovascular Hx Chest Pain within Last 2 months: No Hx of Irregular Heartbeat and/or Afib: No Hx Heart Attack: No Hx Congestive Heart Failure: No Hx Rheumatic Fever: No Hx Hypertension: No Hx Internal Defibrillator: No Hx Pacemaker: No Hx Cardiac Catheterization: No Hx Cardiac Surgery/Stents/Etc.: No Hx Stress Test: No Hx Pain in Legs when Walking/Leg Cramps: No Respiratory Chronic Cough: No HX of Shortness of Breath: No Hoarseness: No Hx Chronic Obstructive Pulmonary Disease (COPD): No Hx Asthma: No Hx Emphysema: No Hx Sleep Apnea: No Hx Respiratory Tract Infection/Cold (presently): No Do You Snore Loudly (louder than talking or can be heard): No Do You Often Feel Tired/ Fatigued/ Sleepy Dring Daytime?: No Has Anyone Observed You Stop Breathing During Sleep?: No Result (for STOP score): Negative Hx Smoking: Yes (as a teenager) Smoking Status: Never smoker Gastrointestinal Hx Gastrointestinal Disorders: No Hx Gastrointestinal Bleed: Yes (rectal bleeding) Hx Ulcer: No Hx Hiatal Hernia: No Difficulty Chewing/Swallowing: No Special diet followed at home: No Hx Unplanned Weight Loss of 20#: No HX Unplanned Weight Gain of 20#: No Neurological Hx Seizures: No HX Syncope/Blackout Spells/Unconsciousness: No Hx Transient Ischemic Attacks (TIA): No Hx Multiple Sclerosis: No Hx Parkinson's Disease: No Hx Head/Neck Injury: Yes Hx Headaches: Yes Hx Back Injury/Pain: No Recent Onset of Speech Difficulty: No Restless Legs: No Does patient have nerve stimulator: No Blood Disorder Hx Leukemia: No Bleeding Tendencies: No Hx Deep Vein Thrombosis: No Hx High Cholesterol: No Blood Transmitted Disease: No Hx Hepatitis: No Hx Cirrhosis: No Hx Anemia: No Hx Blood Disorders: No Genitourinary Hx Renal Disease: No Musculoskeletal Hx Arthritis: No Hx Rheumatoid Arthritis: No Hx Gout: No Endocrine Hx Diabetes: No Thyroid Disease: No Hx Steroid Therapy: No Psycho/Social Hx Substance Use: No Hx Alcohol Use: No Hx Anxiety: Yes Hx Depression: Yes Mental Illness: No Hx Dementia: No Miscellaneous Hx Cancer: No Recent Exposure to Contagious Disease: No Hx of C-Diff: No Any Loose Teeth: No Allergies No Known Allergies Allergy (Verified 01/13/24 09:36) Discharge Is Pt Admitted From a Senior Living, or a Skilled Nursing: No After D/C, Where Do you Plan to Go: Return Home Vital Signs Vital Signs Vital Signs: 01/12/2409:38 01/12/2409:38 Temperature 97.4 F L Temperature Source Temporal Pulse Rate 53 L Respiratory Rate 16 Respiratory Pattern Normal Blood Pressure 122/76 H Blood Pressure Mean 91 Blood Pressure Source Monitor Blood Pressure Position Semi-Fowlers Blood Pressure Location Right Arm Pulse Ox 100 Oxygen Delivery Method Room Air Weight Weight: 134 lb 7.712 oz Body Mass Index (BMI) 23.1 Physical Exam Const alert, oriented x3 and no apparent distress HEENT normocephalic and head/scalp atraumatic Resp normal respiratory effort Cardio regular rate GI soft to palpation and non-tender; Negative for non-distended Palpation: Negative for guarding Extremity no clubbing, cyanosis or edema Skin no rashes or lesions noted Neuro CN's II-XII intact bilaterally Psych mental status grossly normal Assessment & Plan Assessment/Plan (1) Hx of colonic polyps: Surgery Risks - Colonoscopy I discussed with the patient the risks of the procedure: Yes Risks Include but are not Limited To: Risks include but are not limited to: Bleeding, perforation requiring further surgery, inability to complete colonoscopy requiring barium enema. 01/13/24 1031 <Electronically signed by Lexus Lynn MD>
--- NOTE | 2024-02-07 09:05 | HEM_PTH ---
PATIENT: JORGE MERRILL LOC: [facility] U#:[id number] AGE/SX: 38/F ROOM: RE02/07/[address]: Dr. Lexus Lynn MD : 1985 BED: DIS: 02/07/2024 SPEC #: [id number] RECD: 02/07/24 12:14 STATUS: EMILY REAneudy #: [id number] LENA: 02/07/24 09:[address]: Lexus Lynn DEPT: SURGICAL PATHOLOGY RECD BY: Prerna Guerra ENTERED: 02/07/24 13:25 SP TYPE: HEMORRHOID OTHR DR: Yany Roman MD Tissues: HEMORRHOIDS Procedures: Surgery Specimen Level III HEADER OPERATION: Hemorrhoidectomy PRE-OP DIAGNOSIS: Hemorrhoids TISSUE SUBMITTED: Hemorrhoids MICROSCOPIC DIAGNOSIS Hemorrhoids, hemorrhoidectomy: Fragments of anorectal mucosa with dilated and congested blood vessels, consistent with hemorrhoids. SJ.mr 02/10/2024 MICROSCOPIC DESCRIPTION Slides are reviewed. GROSS DESCRIPTION Received in fixative is one container labeled with the patient's name and designated Hemorrhoids. The specimen consists of three variable sized pieces of denny mucosal tissue measuring in aggregate 2.5 x 2.0 x 1.0cm. Sections reveal congested and hemorrhagic cut surfaces. Systems Engineering Manager sections are submitted in one cassette. 02/07/2024 TC:5 CPT:70606
[2024-02-07] MEDS: BUPIVACAINE LIPOSOME/PF 20 ML VIAL OPERA.SITE (09:46)
[2024-02-07] MEDS: Dibucaine 30 GM Tube 1 APPLIC (10:13)
--- NOTE | 2024-02-07 10:23 | OP.PCM_ITS ---
Operative Report (Standard) Operative Information Surgery/Procedure Performed: Hemorrhoidectomy x 2 Surgeon: Lexus Lynn Date of Procedure: 02/07/24 Procedure Start Time: 09:46 Procedure Stop Time: 10:19 Pre-Operative Diagnosis: Internal/external hemorrhoids with bleeding Post-Operative Diagnosis: Same Select all DRAINS/GRAFTS/IMPLANTS that apply: None Type of Anesthesia: General/Supplemental Estimated Blood Loss: 15 cc Specimen collected: Yes Description of specimen(s) removed: Hemorrhoids Description of surgery: The patient was brought into the operating room and general anesthesia was induced. She was placed in prone jackknife lithotomy position. A timeout was completed verifying correct patient, procedure, site, position, and special equipment prior to beginning the procedure. The buttocks were taped apart. Perineum was prepared prepped and draped in standard sterile fashion. Local anesthesia was injected as a perianal nerve block-Exparel - 20 cc total throughout the case. Anus carefully dilated. Small Blayne-Zachariah retractor was introduced and 3 marginal pedicles identified. She was noted to have internal and external hemorrhoids at the right anterior about 6:00 and right posterior about 12:00 location with the right anterior being the larger of the 2. Each pedicle was excised in turn in the following fashion. 2-0 Vicryl was sutured at the base. 2-0 chromic suture was placed at the base of each of the pedicles and retracted externally to exteriorize the hemorrhoidal pedicles. An elliptical incision was made extending from perianal skin to anal rectal ring including both internal and external hemorrhoids and excising a minimal amount of anoderm. Electrocautery as well as hand-held harmonic was used to separate the hemorrhoid from the underlying tissue. Careful not to involve any of the sphincter muscle. The pedicle was indicated from the base and sent to pathology. Hemostasis was achieved using electrocautery/harmonic. Following the hemostasis the skin and mucosal incisions were closed with the running lock stitch of 2-0 chromic. A small Surgifoam with dibucaine was placed in the anus. A gauze pad tucked between the gluteal folds. The patient tolerated procedure well and was extubated and taken to the postanesthesia care unit in stable condition. 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
--- NOTE | 2024-02-07 10:28 | DCINST_ITS ---
Discharge Instructions Procedure Rectal Surgery Diet Discharge Diet: No restrictions Activity Discharge Activity: May Not Drive (while you are taking narcotic pain medications. Do not drive, work with heavy equipment or sign legal documents for 24 hours after your surgery.) Lifting Restrictions: No heavy lifting or strenuous activity for 4 weeks Additional Activity Instructions:: Be aware that pain medications may cause nausea. You should typically eat light foods as you take your pain medications. Pain medications may also cause constipation, if you have difficulty with this please discuss with your doctor. Dressing / Incision Additional Dressing/Incision Instructions:: Leave the operative bandage on for 2 days. If a local anesthetic plug was placed in the anal area, try not to expel for 24-[address] dibucaine ointment on the perianal area as needed. Sitz baths twice daily and after bowel movements. Follow Up Care Please Follow Up With: Lexus Lynn MD When: Please call [phone] to schedule a follow up appointment to be seen 7 days after surgery. Test Results: Test results from this visit will be discussed in further detail at your follow- up appointment, if applicable. Discharge Plan Admission Attending Provider: Lexus Lynn Primary Care Provider: Yany Roman Instructions Additional Instructions / Restrictions: Okay to take ibuprofen 400-800 mg PO q6hr PRN and Tylenol 650 - 1000 mg p.o. every 6 hours as needed along with the oxycodone. A Take all pain meds with food. Oxycodone can cause constipation recommend taking daily stool softener (i.e. Colace/docusate) while taking the pain meds. Recommend starting some MiraLAX in 1 to 2 days if no bowel movement. If still no bowel movement the following day take additional MiraLAX. Print Language: Bahraini Discharge Orders/Prescriptions Prescriptions: New oxycodone 5 mg capsule 5 mg PO Q6H PRN (Reason: pain) 3 Days Qty: 15 0RF Continued Magnesium Complex 300 mg magnesium tablet 600 mg PO DAILY Collagen Skin Renewal 30-833.3 mg tablet 1 tab PO DAILY escitalopram oxalate 10 mg tablet 10 mg PO DAILY Referrals / Follow Up: Yany Roman MD [Primary Care Provider] - Disposition Disposition (needs filled in before D/C Order can be placed): Home, Self Care
--- NOTE | 2024-02-07 11:26 | PCM.POST.ANE ---
Anesthesia: Postop Eval I Current Vital Signs Temperature: 97.2 F Pulse Rate: 56 Blood Pressure: 95/57 Respiratory Rate: 16 Pulse Ox: 97 Oxygen Delivery Method: Simple Mask Assessment Airway patent: Yes Spontaneous unlabored respirations: Yes Mental status: Awake and Calm nausea: No Vomiting: No Anesthesia Complication: No Fluid Hydration Crystalloid volume administer (ml): 700 Total IV fluid infused: 700 Progress Note Anesthesia document: Postop Eval 1 completed: Yes
--- NOTE | 2024-02-07 11:55 | POSTOPAN2_ITS ---
Anesthesia Postop Eval I Sum Postop Eval Completion status Anesthesia document: Postop Eval 1 completed: Yes Anesthesia Postop Eval I Summary Anesthesia Postop Eval I Summary: Anesthesia Postop Eval I: Assessment Summary Airway patent Yes 02/07/24 11:27 PARTY [email or web address] Spontaneous unlabored Yes 02/07/24 11:27 PARTY HOST/[email or web address] respirations Mental status Awake,Calm 02/07/24 11:27 PARTY HOST/HOSTESS.[email or web address] nausea No 02/07/24 11:27 PARTY HOST/HOSTESS.[email or web address] Vomiting No 02/07/24 11:27 PARTY HOST/[email or web address] Anesthesia Postop Eval I: Fluid Summary Crystalloid volume administer 700 02/07/24 11:27 PARTY HOST/[email or web address] (ml) Colloids volume administered ( ml) Blood Product volume administered (ml) Total IV fluid infused 700 02/07/24 11:27 PARTY HOST/HOSTESS.[email or web address] Anesthesia Postop Eval I: Summary Notes Anesthesia Complication No 02/07/24 11:27 PARTY HOST/HOSTESS.[email or web address] Anesthesia Complication Comment: Post-operative progress note Anesthesia: Postop Eval II Evaluation Mental status: Awake and Calm Pain Level: 2 nausea: No Vomiting: No Progress Note Post-operative progress note: Patient had a episode of desaturation at the end of the case. Possibly bronchospasm. Positive pressure ventilation with sevoflurane was used to break spasm and improve saturations. Patient was brought over to PACU with O2 facemask. Through the PACU stay patient has progressively gotten better. At this time patient is no longer on oxygen, breathing easily and saturations are 100%. Lungs are clear. Okay to discharge from PACU Complications Anesthesia Complication: Yes Anesthesia Complication Comment:: Possible episode of bronchospasm. Relieved with positive pressure ventilation with facemask and sevoflurane.
== END 2024-02-07 12:55 | disposition home or self-care (01) ==
LOC: SDC 07:21 → AC 07:25
PROVIDERS: Anesthesiology; PCP Family Medicine; Referring Provider Surgery; Visit Provider Surgery
PROC: (CPT 46255; principal; 2024-02-07 08:50)
DX: K64.8 Other hemorrhoids (principal); F41.9 Anxiety disorder, unspecified; Z86.0100 Personal history of colon polyps, unspecified; Z79.899 Other long term (current) drug therapy
CPT/HCPCS: 46255; 00902; 81025; 88304; J2405

== ENCOUNTER 2024-09-29 08:40 | Outpatient (CLI) | payer BC, SELFPAY | END 2024-09-29 23:59 | disposition home or self-care (01) | LOC: MFPLAB 08:42 | PROVIDERS: PCP Family Medicine; Referring Provider Family Medicine; Visit Provider Family Medicine | DX: S20.161A Insect bite (nonvenomous) of breast, right breast, initial encounter (principal); W57.XXXA Bitten or stung by nonvenomous insect and other nonvenomous arthropods, initial encounter | CPT/HCPCS: 36415; 86617 ==

== ENCOUNTER → 2025-01-25 | Outpatient (CLI) | payer BC, SELFPAY ==
[2025-01-25 18:10] LABS: Hematocrit 35.7 % (37-47); Hemoglobin 12.2 g/dL (12.0-15.0); Immature Granulocytes Count 0.020 X10^3/uL (0.0-0.0); Mean Corp Hgb Conc 34.2 g/dL (32-36); Mean Corpuscular Volume 93.0 fL (81-99); Mean Platelet Vol. 10.0 fl (6.2-12.0); NRBC Flagged by Analyzer 0 % (0-5); Platelet Count 229 K/mm3 (150-450); RBC Distribution Width CV 13.1 % (11.6-14.6); RBC Distribution Width SD 44.4 fl (35.1-43.9); Red Blood Count 3.84 M/mm3 (4.2-5.4); White Blood Count 7.9 K/mm3 (4.4-11.0)
[2025-01-25 18:19] LABS: AST(SGOT) 22 U/L (<=31); Alanine Aminotransfer ALT/SGPT 12 U/L (<=34); Albumin, Serum 4.2 g/dL (3.5-5.0); Alkaline Phosphatase 60 U/L (35-104); Anion Gap 9 (5-15); BUN 17 mg/dL (4-19); BUN/Creat Ratio 28.2 RATIO (10-20); Calcium,Total 9.0 mg/dL (7.6-11.0); Carbon Dioxide 23.9 mmol/L (21.0-32.0); Chloride 104 mmol/L (98-108); Globulin 2.8 g/dL (2.2-4.2); Glucose 102 mg/dL (70-99); Potassium 3.8 mmol/L (3.3-5.1); Vitamin D,25 Hydroxy 23.8 ng/mL (30-100)
[2025-01-25 18:20] LABS: CRP < 3.00 mg/L (0.0-3.0)
[2025-01-27 10:08] LABS: ANTINUCLEAR ANTIBODIES DIRECT Negative (Negative)
[2025-01-27 14:09] LABS: Lyme Scn Total Ab w/Rflx Negative (Negative)
== END | disposition home or self-care (01) ==
LOC: MFPLAB 15:30
PROVIDERS: Family Medicine; PCP Family Medicine; Visit Provider Family Medicine
DX: M25.551 Pain in right hip (principal)
CPT/HCPCS: 36415; 80053; 82306; 84443; 85025; 85652; 86038; 86140; 86431; 86618